=== PATIENT | female | born 1950 | race Caucasian/White ===

== ENCOUNTER 2023-06-02 13:41 | Outpatient (CLI) | payer MEDICARE, SELFPAY ==
--- NOTE | ~2023-06-02 | DEXA_ITS ---
Bone Density Report Name: FREDY MOTA Age: 72 Sex: Female Ethnicity: White Date of : 1950 Indication: postmenopausal; screening for osteoporosis; hysterectomy; Referring Provider: ELLE*MELODIE Jones Study: Bone densitometry was performed. Exam Date: June 02, 2023 Accession number: [id number] Bone Density: Region BMD T-score Z-score Classification AP Spine(L1-L4) 0.719 -3.0 -0.6 Osteoporosis Femoral Neck (Left) 0.674 -1.6 0.5 Osteopenia Total Hip (Left) 0.764 -1.5 0.3 Osteopenia Femoral Neck (Right) 0.673 -1.6 0.5 Osteopenia Total Hip (Right) 0.761 -1.5 0.3 Osteopenia Total Hip Mean 0.763 -1.5 0.3 Osteopenia World Health Organization criteria for BMD impression classify patients as: Normal (T-score at or above -1.0), Osteopenia (T-score between -1.0 and -2.5), or Osteoporosis (T-score at or below -2.5). 10-year Fracture Risk: FRAX not reported because: Some T-score for Spine Total or Hip Total or Femoral Neck at or below -2.5 Treated for osteoporosis Clinical Information Provided by Patient: Is being treated for osteoporosis Has used the following medications: Vitamin D, Calcium Has the following medical conditions: Hysterectomy Patient maximum height was 62 Menopause Age: 28 Does not regularly consume dairy products Onset of menses at age 11 Number of children 1 Impression: The patient has osteoporosis, based on the Total Spine T-score. Discussion: It is important to ask patients whether they are taking their medications and to encourage continued and appropriate compliance with their osteoporosis therapies to reduce fracture risk. It is also important to review their risk factors and encourage appropriate calcium and vitamin D intakes, exercise, fall prevention and other lifestyle measures. Follow-Up: Consider a repeat BMD and Vertebral Fracture Assessment (VFA) exam in 2 years or sooner if medically necessary, to reassess this patient's status. Reported by: ABDULKADIR on 06/02/2023 2:13:00 PM. Reviewed, dictated and finalized at location A. [place]
== END 2023-06-02 13:42 | disposition home or self-care (01) ==
PROVIDERS: PCP Internal Medicine; Visit Provider Internal Medicine
DX: Z78.0 Asymptomatic menopausal state (principal); M81.0 Age-related osteoporosis without current pathological fracture; M85.852 Other specified disorders of bone density and structure, left thigh; M85.851 Other specified disorders of bone density and structure, right thigh
CPT/HCPCS: 77080

== ENCOUNTER 2023-07-31 07:29 | Outpatient (CLI) | payer MEDICARE, SELFPAY ==
--- NOTE | ~2023-07-31 | MM_ITS ---
EXAMINATION: MM screening siria BI w francesca HISTORY: Screening mammogram TECHNIQUE: Craniocaudal and mediolateral oblique 3-D tomosynthesis images were obtained and synthetic 2-D images were generated. CAD analysis was submitted and interpreted. COMPARISON: 06/22/2009 BREAST PARENCHYMAL COMPOSITION: The breasts are heterogeneously dense, which may obscure small masses . FINDINGS: No suspicious mass, calcification, or architectural distortion are identified in either [place] ast to suggest malignancy. There has been no suspicious interval change. IMPRESSION: 1. No mammographic evidence of malignancy. 2. Recommend routine screening mammography in one year. BI-RADS Category 1: Negative Reviewed, dictated and finalized at location A. RY [employer] T[employer]ER
== END 2023-07-31 07:30 | disposition home or self-care (01) ==
PROVIDERS: PCP Internal Medicine; Visit Provider Internal Medicine
DX: Z12.31 Encounter for screening mammogram for malignant neoplasm of breast (principal)
CPT/HCPCS: 77063; 77067

== ENCOUNTER 2024-05-12 10:33 | Outpatient (CLI) | payer MEDICARE, SELFPAY ==
--- NOTE | ~2024-05-12 | MR_ITS ---
MRI of the lumbar spine Clinical History: Back pain Technique: Axial T2-weighted images, and sagittal T1-weighted, T2-weighted, and T2 fat-sat images wer e acquired. Findings: There is no fracture of lumbar spine. Minimal grade 1 anterolisthesis of L3 over L4. No arnold picious bone marrow signal abnormality seen. At L1-L2, there is no disc bulge or herniation. There is mild facet arthropathy. No central canal jamin nosis or neural foraminal narrowing. At L2-L3, there is moderate degenerative distended. There is minimal disc bulge and minimal facet art hropathy. No central canal stenosis. There is mild left neural foraminal narrowing. Right neural fora men preserved. At L3-L4, there is severe degenerative disc narrowing. There is minimal disc bulge and minimal facet arthropathy. No central canal stenosis. There is moderate bilateral neural foraminal narrowing. At L3-4-L5, there is moderate degenerative disc narrowing. There is mild disc bulge with advanced fac et arthropathy. No central canal stenosis. There is moderate bilateral neural foraminal narrowing, ri ght worse than left. At L5-S1, there is minimal disc bulge and moderate to advanced facet arthropathy. No central canal st enosis. There is mild right neural foraminal narrowing. Left neural foramen preserved. Paravertebral soft tissues are unremarkable. Impression: [id number] degenerative spondylosis, as above. Reviewed, dictated and finalized at [facility]. CING SPECIALIST Impression: [id number] degenerative spondylosis, as above.
== END 2024-05-12 10:34 | disposition home or self-care (01) ==
LOC: MICIMG 10:33
PROVIDERS: PCP Internal Medicine; Visit Provider Internal Medicine
DX: M47.896 Other spondylosis, lumbar region (principal)
CPT/HCPCS: 72148

== ENCOUNTER 2024-11-18 07:49 | Outpatient (CLI) | payer MEDICARE, MEDICAID, SELFPAY ==
--- NOTE | ~2024-11-18 | MM_ITS ---
EXAMINATION: MM screening [facility] BI w francesca HISTORY: Screening TECHNIQUE: Craniocaudal and mediolateral oblique 3-D tomosynthesis images were obtained and synthetic 2-D images were generated. CAD analysis was submitted and interpreted. COMPARISON: Comparison to multiple prior studies sequentially, with oldest reviewed study dated 06/05. BREAST PARENCHYMAL COMPOSITION: There are scattered areas of fibroglandular density. FINDINGS: There is no evidence of suspicious mass, calcification, or architectural distortion to sugg est malignancy in either breast. There has been no suspicious interval change. IMPRESSION: 1. No mammographic evidence of malignancy. 2. Recommend routine screening mammography in one year. BI-RADS Category 1: Negative Reviewed, dictated and finalized at location A.
--- OUTSIDE RECORDS SUMMARY | 2024-11-18 07:53 | XMS_ITS | CONTINUITY OF CARE DOCUMENT ---
Author Name marzena, marzena Address Unknown Organization [facility] Address [address] [place] [address] Phone [phone] Care Team Providers Care Merchandiser Name Role Phone Dwain CRUZ, Mónica Unavailable [phone] ELLE CRUZ, MELODIE Ferrer Unavailable [phone] MELODIE ALMEIDA MD Unavailable [phone] PROBLEMS Condition Status Date Provider Notes Abnormal electrocardiogram completed 07/29 - Mónica Prakash MD Tobacco use, quit active Mónica Prakash MD Fatigue completed - Mónica Prakash MD DYSLIPIDEMIA active Mónica Prakash MD Mitral regurgitation, mild active Santiago inman FAMILY HISTORY OF HEART DISEASE active Miguel Prakash MD Aortic regurgitation, mild active Mónica Prakash MD Carotid artery stenosis, <50 % ICA b/l active Mónica Prakash MD Elevated blood pressure active Santiago Tran Macular degeneration, right eye active Olga Manzano Osteoporosis active Fariha Manzano Swelling of bilateral legs active Fariha Manzano Cardiology examination active Mónica iyer MD ENCOUNTERS Date Type Provider Location Encounter Diag nosis - In-person encounter Office Visit Mónica Prakash MD [facility] Cardiology examination - In-person encounter Office Visit Mónica Prakash MD [facility] Fatigue - In-person encounter Office Visit Mónica Prakash MD [facility] Macular degeneration, right eyeOsteoporosisSwelling of bilateral legs - In-person encounter Office Visit Mónica Prakash MD [facility] - In-person encounter Office Visit Mónica Prakash MD [facility] Mitral regurgitation, mildElevated blood pressure - In-person encounter Office Visit Mónica Prakash MD [facility] Abnormal electrocardiogram - In-person encounter Office Visit Mónica Prakash MD [facility] - In-person encounter Office Visit Mónica Prakash MD [facility] Tobacco use, quitDYSLIPIDEMIAMitral regurgitation, mildFAMILY HISTORY OF HEART DISEASEAortic regurgitation, mildCarotid artery stenosis, <50% ICA b/l VITAL SIGNS Date Observation Value Provider Body Mass Index (Ratio) 31.00 kg/m2 Miguel Prakash MD blood pressure, diastolic 95 mm[Hg] Lisa Sepulveda blood pressure, systolic 161 mm[Hg] Laurie georgemago Sepulveda oxygen saturation, oximetry 93 % Griselda Sepulveda pulse rate 71 /min Griselda Sepulveda respiratory rate E&M 12 /min Griselda Sepulveda weight E&M 175 [lb_av] Griselda Sepulveda height E&M 63 [in_i] Griselda Sepulveda blood pressure, cuff size regular Lisa choudharygeorgemago Sepulveda Body Mass Index (Ratio) 30.82 kg/m2 Miguel Prakash MD blood pressure, diastolic 88 mm[Hg] Brittney nkLogic blood pressure, systolic 147 mm[Hg] Anjali blood pressure, cuff size regular Ja rret blood pressure, diastolic 88 mm[Hg] Ja rret blood pressure, systolic 147 mm[Hg] Vinayak ret pulse rate 71 /min Alex y respiratory rate E&M 12 /min Alex oxygen saturation, oximetry 96 % weight E&M 174 [lb_av] Alex y height E&M 63 [in_i] Alex y Body Mass Index (Ratio) 31.00 kg/m2 Olga Manzano blood pressure, cuff size regular Ke rri Gruenenfelder blood pressure, diastolic 80 mm[Hg] Ke rri Gruenenfelder blood pressure, systolic 160 mm[Hg] Jeff ri Humanfelder oxygen saturation, oximetry 97 % Nathalie Chader respiratory rate E&M 12 /min Nathalie fieldselder pulse rate 74 /min Nathalie Devynnenfe lder weight E&M 175 [lb_av] Nathalie Gryaranenfe lder height E&M 63 [in_i] Nathalie Gruenenfe lder Body Mass Index (Ratio) 29.58 kg/m2 Miguel Prakash MD blood pressure, diastolic 83 mm[Hg] Brittney nkLogic blood pressure, systolic 130 mm[Hg] Anjali kLogic blood pressure, cuff size regular Ca therine Dayton blood pressure, diastolic 83 mm[Hg] Ca therine Juan blood pressure, systolic 130 mm[Hg] Cat herine Juan oxygen saturation, oximetry 95 % Cherrie Dayton respiratory rate E&M 18 /min Catheri ne [place] pulse rate 67 /min Cherrie [place] weight E&M 167 [lb_av] Cherrie Juan height E&M 63 [in_i] Cherrie Dayton Body Mass Index (Ratio) 28.87 kg/m2 Tony n Kyte weight E&M 163 [lb_av] Mónica Prakash MD blood pressure, cuff size large Ke rri Gruenenfelder blood pressure, diastolic 88 mm[Hg] Ke rri Gruenenfelder blood pressure, systolic 152 mm[Hg] Jeff ri Humanfelder oxygen saturation, oximetry 98 % Nathalie Chader respiratory rate E&M 16 /min Nathalie fieldselder pulse rate 71 /min Nathalie Benjamin lder height E&M 63 [in_i] Nathalie Gruenenfe lder Body Mass Index (Ratio) 27.81 kg/m2 Tony n Kyte pulse rate 70 /min Fariha Block blood pressure, diastolic 70 mm[Hg] [facility] blood pressure, systolic 130 mm[Hg] Nay tubbs Block oxygen saturation, oximetry 97 % Fariha Block weight E&M 157 [lb_av] Fariha Block respiratory rate E&M 16 /min Brittan y Block height E&M 63 [in_i] Fariha Block Body Mass Index (Ratio) 28.06 kg/m2 Frank dos santosnora Eugenie blood pressure, diastolic 74 mm[Hg] David Prakash MD blood pressure, systolic 124 mm[Hg] Lisseth Prakash MD oxygen saturation, oximetry 96 % Hong Lemus respiratory rate E&M 18 /min Christelle Lemus pulse rate 78 /min Hong arndt weight E&M 158.4 [lb_av] Hong garcia height E&M 63 [in_i] Hong arndt Body Mass Index (Ratio) 26.92 kg/m2 Curtis Arteaga blood pressure, resting No Miguel Prakash MD blood pressure, cuff size regular Ke rri Zita blood pressure, diastolic 76 mm[Hg] Maldonado Ahumada blood pressure, systolic 138 mm[Hg] Jeff Ahumada oxygen saturation, oximetry 94 % Russell Arteaga respiratory rate E&M 16 /min Nathalie tan pulse rate 67 /min Nathalie kinneyer weight E&M 152 [lb_av] Nathalie kinneyer height E&M 63 [in_i] Nathalie kinneyer ALLERGIES Allergy Name Onset Date Reaction Criticality Status CODEINE Low Criticality active RESULTS Date Observation Value Provider Reference Range Interpretation Location 0 lipoprotein, beta, serum, point, quantitative, calculated 110 mg/dL [facility] 0-99 High 0 very low density lipoproteins 18 mg/dL [facility] 5-40 0 HDL cholesterol, serum 85 mg/dL [facility] >39 0 triglyceride, serum, random 88 mg/dL [facility] 0-149 0 cholesterol, serum 213 mg/dL [facility] 100-199 High 0 alanine aminotransferase (SGPT), serum 27 1/L [facility] 0-32 0 aspartate aminotransferase (SGOT), serum 36 1/L [facility] 0-40 0 alkaline phosphatase, serum 67 1/L [facility] 39-117 0 bilirubin, serum, total 0.7 mg/dL [facility] 0.0-1.2 0 albumin/globulin ratio, serum 1.8 [facility] 1.2-2.2 0 globulin, serum 2.6 [facility] 1.5-4.5 0 albumin, serum 4.6 g/dL [facility] 3.6-4.8 0 protein, total, serum 7.2 g/dL [facility] 6.0-8.5 0 calcium, serum 9.8 mg/dL [facility] 8.7-10.3 0 carbon dioxide, venous blood 23 mmol/L [facility] 20-29 0 chloride, serum 100 mmol/L [facility] 96-106 0 potassium, serum 4.7 mmol/L [facility] 3.5-5.2 0 sodium, serum 140 mmol/L [facility] 742-819 6587/06/3 0 urea nitrogen/creatinine ratio, serum 20 [facility] 12-28 0 eGFR if 102 mL/min/{1 .73_m2} [facility] >59 0 eGFR if not 89 mL/min/{1 .73_m2} [facility] >59 0 creatinine, serum 0.70 mg/dL [facility] 0.57-1.00 0 urea nitrogen, blood 14 mg/dL [facility] 8-27 0 blood glucose, random 90 mg/dL [facility] 65-99 HISTORY OF MEDICATION USE Medication Status Instructions Dates Provider Indications Com ments amlodipine 2.5 mg tablet active Take 1 tablet by mouth once a day MULTIVITAMINS CAPS active 1 tablet once a day Nathalie Ahumada Vitamin B-6 100 mg tablet active once a day Nathalie Ahumada Lipitor 20 mg tablet active 1 tablet once a day Nina Hopkins NP CALCIUM-VITAMIN D3 TABLET completed Twice daily - Nathalie Ahumada ASPIRIN LOW DOSE 81 MG ORAL TABLET DELAYED RELEASE completed once a day - Nathalie Ahumada magnesium oxide 250 mg magnesium tablet completed 1 tablet once a day - Alex Ajday B-12 CAPSULE completed once a day - Nathalie Ahumada CALCIUM CITRATE + D3 TABLET completed once a day - Russell Arteaga ergocalciferol (vitamin D2) 1,250 mcg (50,000 unit) capsule active once a week Nathalie Ahumada LIPITOR 20 MG ORAL TABLET completed once a day - Mónica Prakash MD SOCIAL HISTORY Date Observation Value Provider alcohol use, average drinks per day social Mónica Prakash MD alcohol use yes Mónica Prakash MD smoking, year quit 2002 Mónica Prakash MD number of years as a smoker 35 a Mónica Prakash MD smoking history, tot al pack/day 1 Mónica Prakash MD cigarette use yes Mónica Prakash MD smoking status Former smoker Mónica elliott MD alcohol use, average drinks per day social Mónica Prakash MD alcohol use yes Mónica Prakash MD smoking, year quit 2002 Mónica Prakash MD number of years as a smoker 35 a Mónica Prakash MD smoking history, tot al pack/day 1 Mónica Prakash MD cigarette use yes Móinca Prakash MD smoking status Former smoker Mónica elliott MD social history E&M S moking History: Naty kelly is a former smoker. Fariha Manzano social history reviewed E&M revi ewed - no changes required Fariha Jacobsmeyer exercise type classes Nathalie Freeman elder physical exercise, f requency, days per week 4 /wk Nathalie Ahumada caffeine use, averag e drinks per day 2-3 Nathalie Ahumada smoking, year quit 2002 Nathalie garcíadolly number of years as a smoker 35 a Nathalie Ahumada smoking history, tot al pack/day 1 Nathalie Ahumada cigarette use yes Nathalie Freeman elder smoking status Former smoker Nathalie haines social history E&M S moking History: P atient is a former smoker. Mónica Prakash MD social history reviewed E&M revi ewed - no changes required Mónica Prakash MD exercise type classes Cherrie Juan physical exercise, f requency, days per week 4 /wk Cherrie Juan caffeine use, averag e drinks per day 2-3 Cherrie Juan smoking, year quit 2002 Cherrie Dayton number of years as a smoker 35 a Cherrie Dayton smoking history, tot al pack/day 1 Cherrie Juan cigarette use yes Cherrie Dayton smoking status Former smoker Cherrie Ot is social history E&M S moking History: P atient is a former smoker. Mónica Prakash MD social history reviewed E&M revi ewed - no changes required Mónica Prakash MD exercise type classes Nathaliecirilo Shepardnavakelvin devin physical exercise, f requency, days per week 4 /wk Nathalie Freemandevin caffeine use, averag e drinks per day 2-3 Nathalie Bonillaanton smoking, year quit 2002 Nathalie cruzer number of years as a smoker 35 a Nathalie Bonillaer smoking history, tot al pack/day 1 Nathalie Freemanelder cigarette use yes Nathalie Freeman elder smoking status Former smoker Nathalie warrenelder social history E&M S moking History: Naty kelly is a former smoker. Mónica Prakash MD social history reviewed E&M revi ewed - no changes required Mónica Prakash MD exercise type classes Fariha Mccracken physical exercise, f requency, days per week 4 /wk Fariha Block caffeine use, averag e drinks per day 2-3 Fariha Block smoking, year quit 2002 Fariha Mccracken number of years as a smoker 35 a Fariha Block smoking history, tot al pack/day 1 Fariha Block cigarette use yes Fariha Block smoking status Former smoker Fariha Proctor caffeine use, averag e drinks per day 2-3 Sarah Culclager physical exercise, f requency, days per week 4 /wk Sarah Culclager exercise type classes Sarah Culclager smoking, year quit 2002 Sarah Culc lager cigarette use yes Sarah Culclager smoking status Former smoker Sarah Culclag er number of grandchildren Mónica Prakash MD social history reviewed E&M revi ewed - no changes required Mónica Prakash MD exercise type strength trainin g and cardio Hong Lemus physical exercise, f requency, days per week 4 /wk Hong Lemus alcohol use, average drinks per day social Hong Lemus alcohol use yes Hong arndt smoking, year quit 2002 Hong Lemsu number of years as a smoker 35 a Hong Lemus smoking history, tot al pack/day 1 Hong Lemus cigarette use yes Hong garcia smoking status Former smoker Hong Sosa exercise type strength trainin g and cardio Mónica Prakash MD physical exercise, f requency, days per week 4 /wk Mónica Prakash MD social history reviewed E&M revi ewed - no changes required Mónica Prakash MD social history E&M Smoking Histo ry: Naty kelly is a former smoker. Mónica Prakash MD alcohol use, average drinks per day social Nathalie Ahumada alcohol use yes Nathalie chaidez number of years as a smoker 35 a Nathalie Ahumada smoking history, tot al pack/day 1 Mónica Prakash MD smoking, year quit 2002 Nathalie alberto cigarette use yes Nathalie beltran smoking status Former smoker Nathalie Huma haines FAMILY HISTORY Family Member Condition Father Family History of Co ronary Artery Disease: Mother Family History Unkno wn Father Family History of CV A or Stroke: INSURANCE PROVIDERS Payer name Policy type / Coverage type [place] red libertarian ID AARP MEDICARE ADVANTAGE HMO-POS HMO [id number] [facility] Medicaid 2 [id number] ADVANCE DIRECTIVES Name Date DISCUSSED - NO DECISION MADE TREATMENT PLAN Date Name Performer [id number],C,1 07/2020 1 . Mild plaque with less than 50% stenosis of the internal carotid arteries bilaterally. 2 . High grade stenosis of the right ECA, PSV= 3.97m/s. 3 . Vertebral flow is antegrade bilaterally. will recheck carotid duplex Nina Hopkins NP [id number],C,L > R. will check venous doppler with reflux Nina Hopkins LOG POND WORKER [id number],C, R esolved. negative stress test 02/2022 Nina Hopkins LOG POND WORKER [id number],C,C HOL: 213 (01/02/2018) HDL: 85 (01/02/2018) Her updated medication list for this problem includes: Lipitor 20 Mg Tablet (Atorvastatin) ..... 1 tablet once a day recent labs at PCP. will request results Nina Mondragonshireen LOG POND WORKER [id number],C,ECHO 02/2022 m oderate MR Nina Hopkins LOG POND WORKER [id number],C, T race on echo 02/2022 . Nina Mondragonshireen WONG [id number],C,B P today 160/80. pt states that at PCP office on thursday it was 120/80 and whenever she checks her BP at the store it is always around the 120/80 range Nina Hopkins LOG POND WORKER [id number],C, Nina ashley LOG POND WORKER [id number],C, Nina ashley LOG POND WORKER [id number],S, B P today is satisfactory. Mónica Prakash MD [id number],S, T race on recent echo. Mónica Prakash MD [id number],S, T race on recent echo. Mónica Prakash MD [id number],S, R esolved. Mónica Prakash MD [id number],S, C ontinues on Lipitor 40mg daily. Mónica Prakash MD [id number],S, < 50% stenosis bilaterally with high grade stenosis of left ECA on recent scan. No dizziness, lightheadedness, syncope. Mónica Prakash MD Cardiology Mónica Steinberg Cardiology:notes sig nificant improvement of sx with support stockings; continue use Mónica Prakash MD Cardiology:161/95 p t states is well controlled at home a dvised to continue monitoring Mónica Prakash MD Cardiology: H er updated medication list for this problem includes: Lipitor 20 Mg Tablet (Atorvastatin) ..... 1 tablet once a day Mónica Prakash MD Cardiology: 0 12/2022 US showed 1 . Mild plaque with less than 50% stenosis of the internal carotid arteries bilaterally. 2 . Vertebral flow is antegrade bilaterally Mónica Prakash MD Cardiology:She wears compression stockings every day and leg swelling and pain has improved Mónica Prakash MD Cardiology:BP 147/88 today W ell controlled at home C ontinue to monitor Mónica Prakash MD Cardiology:12/2022 U S showed 1 . Mild plaque with less than 50% stenosis of the internal carotid arteries bilaterally. 2 . Vertebral flow is antegrade bilaterally Mónica Prakash MD Cardiology:Continue on statin, aim for LDL less than 70 Her updated medication list for this problem includes: Lipitor 20 Mg Tablet (Atorvastatin) ..... 1 tablet once a day Mónica Prakash MD Cardiology:05/2021 1 . Mild plaque with less than 50% stenosis of the internal carotid arteries bilaterally. 2 . High grade stenosis of the right ECA, PSV= 3.97m/s. 3 . Vertebral flow is antegrade bilaterally. will recheck carotid duplex Nina Hopkins NP Cardiology:L > R. wi ll check venous doppler with reflux Nina Hopkins NP Cardiology: R esolved. negative stress test 02/2022 Nina Hopkins NP Cardiology:CHOL: 213 (01/02/2018) HDL: 85 (01/02/2018) Her updated medication list for this problem includes: Lipitor 20 Mg Tablet (Atorvastatin) ..... 1 tablet once a day recent labs at PCP. will request results Nina Hopkins LOG POND WORKER Cardiology:ECHO 02/2022 moderate MR Nina Hopkins LOG POND WORKER Cardiology: T race on echo 02/2022 . Nina Hopkins LOG POND WORKER Cardiology:BP today 160/80. pt states that at PCP office on thursday it was 120/80 and whenever she checks her BP at the store it is always around the 120/80 range Nina Hopkins LOG POND WORKER Cardiology Nina Hopkins LOG POND WORKER Cardiology Nina Mondragonshireen LOG POND WORKER Cardiology: B P today is satisfactory. Mónica Prakash MD Cardiology: T race on recent echo. Mónica Prakash MD Cardiology: T race on recent echo. Mónica Prakash MD Cardiology: R esolved. Mónica Prakash MD Cardiology: C ontinues on Lipitor 40mg daily. Mónica Prakash MD Cardiology: < 50% stenosis bilaterally with high grade stenosis of left ECA on recent scan. No dizziness, lightheadedness, syncope. Mónica Prakash MD Cardiology Follow up :Resolved. Santiago Tran Cardiology Follow up :Mild on echo today. Will repeat echo in 1 year. Santiago Tran Cardiology Follow up :Continues on Lipitor 40mg daily. Planned for labs with you in July. She would benefit from a lipid pnael. Santiago Tran Cardiology Follow up :< 50% stenosis bilaterally in 2017. Will repeat doppler in 1 year. Santiago Tran Cardiology Follow up :Mild AR on echo today. Will repeat echo in 1 year. Mónica Prakash MD Cardiology Follow up :Likely due to stress. Advised reduced sodium intake and routine monitoring of the blood pressure. We aim for less than 130/80. Mónica Prakash MD Cardiology :Will repeat echo. David Prakash MD Cardiology :Denies o f any dizziness or unsteadiness. will continue to monitor. Mónica Prakash MD Cardiology :Continue s on Lipitor 40mg daily. We will request labs from your office. Mónica Prakash MD Cardiology :Murmur u nchanges. Will repeat echo at next appointment. Mónica Prakash MD Cardiology Mónica Steinberg Cardiology:Will chec k lipid panel in three months. The patient is currently following a ketogenic diet, which means that the amount of fat she eats is likely higher than previously. She continues Lipitor 20mg once daily Mónica Prakash MD Cardiology Mónica Steinberg Cardiology Mónica Steinberg Cardiology New Patient:On Atorva statin 20mg daily. Russell Chandler Cardiology New Patie nt:The echo shows mild aortic regurgitation. Russell Chandler Cardiology New Patie nt:Clinically no murmur was appreciated on auscultation. The echo does show moderate MR, but LV size and systolic function are normal, and the left atrium is not enlarged. No further intervention is indicated. I have reassured the patient that we will repeat the echocardiogram in a few years or earlier if she becomes symptomatic. Russell Arteaga Cardiology New Patie nt:The etiology of her increased tiredness and easy fatigability is unclear. She tells me that she had all her bloodwork done, which were normal. This means that the TSH was normal. Russell Arteaga Date Name Carotid Duplex Bilat eral Venous Doppler Bilat eral LE - Reflux Carotid Duplex Bilat eral Complete Echo Complete Echo TSH, 3RD GENERATION W/REFLEX TO FT4 LIPID PANEL COMPREHENSIVE METABO LIC PANEL, W/EGFR HISTORY OF PROCEDURES Procedure Date Procedure Name Provider Procedure Notes S tatus Complex e/m visit add on Mónica Prakash MD completed EKG Mónica Prakash MD complet ed EKG Mónica Prakash MD complet ed EKG Mónica Prakash MD complet ed EKG Mónica Prakash MD complet ed EKG Mónica Prakash MD complet ed EKG Mónica Prakash MD complet ed EKG Mónica Prakash MD complet ed EKG Mónica Prakash MD complet ed SNOMED-CT: [id number] Current Medications Documented Mónica Prakash MD completed Stress EKG Josiah Dupree MD complete d Cardiolite, 2 units Josiah Dupree MD completed SPECT Images Jesus Kuhn MD complet ed
--- OUTSIDE RECORDS SUMMARY | 2024-11-18 07:54 | XMS_ITS | Data Portability ---
Author Organization [place] [employer], Main Office Address [address] [place] [id number] Care Team Providers Care Chief Load Dispatcher Name Role Phone MELODIE ALMEIDA Primary Care Provider MELODIE ALMEIDA Referring Provider [phone] Assessment Encounter Date Assessment Date Assessment LastModified by Organization Details LastModified Time 12/17/2022 12/17/2022 Continue current therapy rtc 4 months [email or web address] Not available 01/25/2023 18:35:56 04/15/2023 04/15/2023 Blood work low fat diet regular exercise no detectable PCR hep C nucleic acid see me in 6 months [email or web address] Not available 04/18/2023 14:07:39 06/10/2023 06/10/2023 Bone density discussed in detail she wants to hold off on any agents at this time she does have some concerns those were discussed she will think about it will continue current therapy follow-up in 4-6 months [email or web address] Not available 06/12/2023 19:41:43 09/01/2023 09/01/2023 73 yo patient presents today for right knee pain that has been going on for about 3 weeks. She denies any injury or issues with the knee in the past. She states she woke up in the middle of the night and when she went to straighten the knee it felt stiff and heavy. It was painful to straighten. Since then she has felt the knee as been tender and slightly stiff. She has tried ibuprofen, exercise, and an essential oil balm, which has helped. Review of systems per patient questionnaire. Imaging: Xrays reviewed of the right knee show no acute bony abnormality or fracture. Preserved joint spaced throughout. Physical exam: No bruising or edema. Tenderness with palpitation to the lateral side. Discomfort with deep flexion. ROM 0-150. Positve McMurrays. Stable Lachmanns, varus/valgus stress. Sensation intact. We will start with a course of PT exercises to help stretch and strengthen the knee. She would like to do the exercises at home on her own so we will give her a handout. We recommend she take ibuprofen regularly for the next week or so. We will see her back in 4-6 weeks to check her progress. She is in agreement with this plan. [email or web address] Not available 09/01/2023 11:26:20 Plan of Treatment Reminders Order Date Submit Date Provider Last Modified By Organization Details Last Modified Time Details Appointments None recorded. Lab CBC w/ auto diff 023 [facility] (Lab), [address] [place], [address], 3 11:02:21 lipid panel, serum [facility] (Lab), [address] [place], [address], 3 13:19:22 CMP, serum or plasma [facility] (Lab), [address] [place], [address], 3 13:19:24 Referral None recorded. Procedures None recorded. Surgeries None recorded. Imaging XR, knee, 3 view 024 [email or web address], [address], [place], [address], 4 23:26:19 bone density [facility] (Imaging), [address], [place], [address], 3 10:21:55 Medication Orders None recorded. Patient TargetsNo targets recorded. Patient Instructions Encounter Date Encounter Id Patient Instructions Last Modified By Organization Details Last Modified Time 10/13/2023 [id number] acute low back pain: exercises Not available 04/06/2024 09:51:27 acute high blood pressure: care instructions Not available 04/06/2024 09:51:27 Reason for Referral None Reported. Results Created Date Observation Date Name Description Value Unit Range Abnormal Flag Note LastModifiedBy Organization Detail LastModifiedTime 04/17/2004/17/2023 CBC/C OMPLE TE BLD COUNT W/DIF F white blood cells 5.8 x10'3 /uL 4.2-10 .8 Not Available [facility] (Lab) [address] [place], [address], 04/17/2023 11:02:21 04/17/2004/17/2023 CBC/C OMPLE TE BLD COUNT W/DIF F red blood cells 4.79 x10'6 /uL 3.80-5 .20 Not Available [facility] (Lab) [address] [place], [address], 04/17/2023 11:02:21 04/17/2004/17/2023 CBC/C OMPLE TE BLD COUNT W/DIF F hemoglobin 15.0 g/dL 12.0-1 5.6 Not Available [facility] (Lab) [address] [place], [address], 04/17/2023 11:02:21 04/17/2004/17/2023 CBC/C OMPLE TE BLD COUNT W/DIF F hematocrit 44.8 % 35.7-4 5.7 Not Available [facility] (Lab) [address] [place], [address], 04/17/2023 11:02:21 04/17/2004/17/2023 CBC/C OMPLE TE BLD COUNT W/DIF F mean red cell volume 93.5 fL 82.0-9 9.0 Not Available [facility] (Lab) [address] [place], [address], 04/17/2023 11:02:21 04/17/2004/17/2023 CBC/C OMPLE TE BLD COUNT W/DIF F mean red cell hemoglobin 31.3 pg 27.0-3 3.0 Not Available [facility] (Lab) [address] [place], [address], 04/17/2023 11:02:21 04/17/2004/17/2023 CBC/C OMPLE TE BLD COUNT W/DIF F mean RBC HGB concentratio n 33.5 g/dL 31.0-3 6.0 Not Available [facility] (Lab) [address] [place], [address], 04/17/2023 11:02:21 04/17/2004/17/2023 CBC/C OMPLE TE BLD COUNT W/DIF F red cell distribution width 13.6 % 11.8-1 5.5 Not Available [facility] (Lab) [address] [place], [address], 04/17/2023 11:02:21 04/17/2004/17/2023 CBC/C OMPLE TE BLD COUNT W/DIF F platelets 178 x10'3 /uL 150-40 0 Not Available [facility] (Lab) [address] [place], [address], 04/17/2023 11:02:21 04/17/2004/17/2023 CBC/C OMPLE TE BLD COUNT W/DIF F mean platelet volume 10.6 fL 9.0-12 .4 Not Available [facility] (Lab) [address] [place], [address], 04/17/2023 11:02:21 04/17/2004/17/2023 CBC/C OMPLE TE BLD COUNT W/DIF F neutrophils 60.1 % 39.0-7 2.0 Not Available [facility] (Lab) [address] [place], [address], 04/17/2023 11:02:21 04/17/2004/17/2023 CBC/C OMPLE TE BLD COUNT W/DIF F lymphocytes 26.5 % 16.0-4 7.0 Not Available [facility] (Lab) [address] [place], [address], 04/17/2023 11:02:21 04/17/2004/17/2023 CBC/C OMPLE TE BLD COUNT W/DIF F monocytes 10.0 % 5.0-12 .0 Not Available [facility] (Lab) [address] [place], [address], 04/17/2023 11:02:21 04/17/2004/17/2023 CBC/C OMPLE TE BLD COUNT W/DIF F eosinophils 2.2 % 1.0-7. 0 Not Available [facility] (Lab) [address] [place], [address], 04/17/2023 11:02:21 04/17/2004/17/2023 CBC/C OMPLE TE BLD COUNT W/DIF F basophils 0.9 % 0.0-2. 0 Not Available [facility] (Lab) [address] [place], [address], 04/17/2023 11:02:21 04/17/2004/17/2023 CBC/C OMPLE TE BLD COUNT W/DIF F immature granulocytes 0.3 % 0.00-0 .50 Not Available [facility] (Lab) [address] [place], [address], 04/17/2023 11:02:21 04/17/2004/17/2023 CBC/C OMPLE TE BLD COUNT W/DIF F neutrophils, absolute count 3.50 x10'3 /uL 1.5-8. 0 Not Available [facility] (Lab) [address] [place], [address], 04/17/2023 11:02:21 04/17/2004/17/2023 CBC/C OMPLE TE BLD COUNT W/DIF F lymphocytes, absolute count 1.54 x10'3 /uL 1.07-3 .43 Not Available [facility] (Lab) [address] [place], [address], 04/17/2023 11:02:21 04/17/2004/17/2023 CBC/C OMPLE TE BLD COUNT W/DIF F monocytes, absolute count 0.58 x10'3 /uL 0.29-0 .99 Not Available [facility] (Lab) [address] [place], [address], 04/17/2023 11:02:21 04/17/2004/17/2023 CBC/C OMPLE TE BLD COUNT W/DIF F eosinophils, absolute count 0.13 x10'3 /uL 0.02-0 .53 Not Available [facility] (Lab) [address] [place], [address], 04/17/2023 11:02:21 04/17/2004/17/2023 CBC/C OMPLE TE BLD COUNT W/DIF F basophils, absolute count 0.05 x10'3 /uL 0.01-0 .08 Not Available [facility] (Lab) [address] [place], [address], 04/17/2023 11:02:21 04/17/2004/17/2023 CBC/C OMPLE TE BLD COUNT W/DIF F immature granulocytes ,absolute 0.02 x10'3 /uL 0.00-0 .05 Not Available [facility] (Lab) [address] [place], [address], 04/17/2023 11:02:21 04/17/2004/17/2023 CBC/C OMPLE TE BLD COUNT W/DIF F nucleated red blood cells 0.0 % -0 Not Available [facility] (Lab) [address] [place] [address], [address], 04/17/2023 11:02:21 04/17/20 23 04/17/2023 CBC/C OMPLE TE BLD COUNT W/DIF F NRBC# 0.00 x10'3 /uL Not Available [facility] (Lab) [address] [place] [address], [address], 04/17/2023 11:02:21 04/17/2004/17/2023 LIPID PANEL cholesterol 231 mg/dL 140-19 9 high NIH MONICA NSUS RECOM MENDA TION FOR STERLING STERO L: ADULT CHILD LOW RISK: <200 <170 BORDE RLINE : <200- 239 ----- HIGH RISK: >240 >200 Not Available [facility] (Lab) [address] [place], [address], 04/17/2023 13:19:22 04/17/2004/17/2023 LIPID PANEL triglyceride s 110 mg/dL 0-150 NIH MONICA NSUS REPOR T RECOM MENDA TION FOR TRIGL YCERI ROSSY: ADULT CHILD LOW RISK: <150 ----- BODER LINE: 150-1 99 ----- HIGH RISK: >200 ----- Not Available [facility] (Lab) [address] [place], [address], 04/17/2023 13:19:22 04/17/2004/17/2023 LIPID PANEL HDL cholesterol 74 mg/dL 40- Not Available [facility] (Lab) [address] [place] [address], [address], 04/17/2023 13:19:22 04/17/20 23 04/17/2023 LIPID PANEL LDL cholesterol, calculated 135 mg/dL 0-130 high NIH MONICA NSUS REPOR T RECOM MENDA TIONS FOR LDL: ADULT CHILD LOW RISK <130 <110 (OPTI MAL LDL) <100 ----- BORDE RLINE : 130-1 59 ----- HIGH RISK: >160 >130 A TRIGL YCERI DE RESUL T >400 INVAL IDATE S THE CALCU LATIO N FOR LDL FRACT IONAT ION - THE LDL RESUL T WILL NOT BE REPOR BELKYS. Not Available [facility] (Lab) [address] [place], [address], 04/17/2023 13:19:22 04/17/2004/17/2023 COMPR EHENS IVANIA METAB OLIC PANEL sodium 139 mmol/ L 137-14 5 Not Available [facility] (Lab) [address] [place], [address], 04/17/2023 13:19:24 04/17/2004/17/2023 COMPR EHENS IVANIA METAB OLIC PANEL potassium 4.3 mmol/ L 3.5-5. 1 Not Available [facility] (Lab) [address] [place], [address], 04/17/2023 13:19:24 04/17/2004/17/2023 COMPR EHENS IVANIA METAB OLIC PANEL chloride 103 mmol/ L 98-107 Not Available [facility] (Lab) [address] [place], [address], 04/17/2023 13:19:24 04/17/2004/17/2023 COMPR EHENS IVANIA METAB OLIC PANEL carbon dioxide 30 mmol/ L 22-30 Not Available [facility] (Lab) [address] [place], [address], 04/17/2023 13:19:24 04/17/2004/17/2023 COMPR EHENS IVANIA METAB OLIC PANEL anion gap 10.3 mmol/ L 14-22 low Not Available [facility] (Lab) [address] [place], [address], 04/17/2023 13:19:24 04/17/2004/17/2023 COMPR EHENS IVANIA METAB OLIC PANEL glucose 93 mg/dL 70-99 Not Available [facility] (Lab) [address] [place], [address], 04/17/2023 13:19:24 04/17/2004/17/2023 COMPR EHENS IVANIA METAB OLIC PANEL BUN 19 mg/dL 8-19 Not Available [facility] (Lab) [address] [place], [address], 04/17/2023 13:19:24 04/17/2004/17/2023 COMPR EHENS IVANIA METAB OLIC PANEL creatinine 0.66 mg/dL 0.66-1 .25 Not Available [facility] (Lab) [address] [place], [address], 04/17/2023 13:19:24 04/17/2004/17/2023 COMPR EHENS IVANIA METAB OLIC PANEL GFR >60 Refer ence Range : [place] ge GFR Healt hy Adult : >60 mL/mi n/1.7 3 m2 Chron ic Kidne y Disea se: 15-60 mL/mi n/1.7 3 m2 Kidne y Failu re: <15/m L/min /1.73 m2 www.n iddk. nih.g ov The MDRD study equat ion has not been valid ated in child zac <18 years of age; pregn ant women ; the elder ly >85 years of age; or in some racia l or ethni c subgr oups, such as Hisga nics. Outsi de the valid ated chadwick eters , estim ated GFR is less accur ate, requi ring clini juancarlos judgm ent on a case- by-ca se basis . Clini juancarlos inter preta tion for other races and ages must be made by the clini janay. The MDRD study equat ion has not been valid ated for the evalu ation of serum creat inine relat ed to nutri danelle l statu s or medic ation usage . For perso ns <18 years of age, a pedia tric GFR calcu lator is avail able on the [facility] websi te: https ://abelardo hanley.jairo branch.o rudy/pr ofess ional s/kdo qi/gf r_cal culat or Not Available [facility] (Lab) [address] [place], [address], 04/17/2023 13:19:24 04/17/2004/17/2023 COMPR EHENS IVANIA METAB OLIC PANEL alkaline phosphatase 113 U/L 38-126 Not Available [facility] (Lab) [address] [place], [address], 04/17/2023 13:19:24 04/17/2004/17/2023 COMPR EHENS IVANIA METAB OLIC PANEL alanine aminotransfe rase 37 U/L 0-35 high Not Available [facility] (Lab) [address] [place], [address], 04/17/2023 13:19:24 04/17/2004/17/2023 COMPR EHENS IVANIA METAB OLIC PANEL aspartate aminotransfe rase 39 U/L 15-37 high Not Available [facility] (Lab) [address] [place], [address], 04/17/2023 13:19:24 04/17/2004/17/2023 COMPR EHENS IVANIA METAB OLIC PANEL bilirubin, total 1.00 mg/dL 0.20-1 .30 Not Available [facility] (Lab) [address] [place], [address], 04/17/2023 13:19:24 04/17/2004/17/2023 COMPR EHENS IVANIA METAB OLIC PANEL calcium 9.5 mg/dL 8.4-10 .2 Not Available [facility] (Lab) [address] [place], [address], 04/17/2023 13:19:24 04/17/2004/17/2023 COMPR EHENS IVANIA METAB OLIC PANEL total protein 7.4 g/dL 6.3-8. 2 Not Available [facility] (Lab) [address] [place], [address], 04/17/2023 13:19:24 04/17/20 23 04/17/2023 COMPR EHENS IVANIA METAB OLIC PANEL albumin 4.4 g/dL 3.0-4. 4 Not Available [facility] (Lab) [address] [place], [address], 04/17/2023 13:19:24 04/17/2004/17/2023 COMPR EHENS IVANIA METAB OLIC PANEL globulin 3.0 g/dL 2.6-4. 2 Not Available [facility] (Lab) [address] [place], [address], 04/17/2023 13:19:24 04/17/2004/17/2023 COMPR EHENS IVANIA METAB OLIC PANEL A/G ratio 1.5 ratio 1.0-2. 0 Not Available [facility] (Lab) [address] [place], [address], 04/17/2023 13:19:24 12/05/19 23 12/04/2022 US, judd smith id arter y No observ ation record ed. [email or web address] [facility] [address], [place], [address], 04/17/2023 10:02:52 12/06/19 23 12/04/2022 US, zuleika smith s, lower extre mity No observ ation record ed. [email or web address] [facility] [address], [place], [address], 04/17/2023 10:03:13 06/04/20 23 06/02/2023 bone densi ty No observ ation record ed. [address], [place], [address], 06/08/2023 10:32:26 06/05/20 23 06/02/2023 bone densi ty No observ ation record ed. [address], [place], [address], 06/08/2023 10:31:12 07/31/19 24 07/31/2023 MAMMO , scree heber, digit al, bilat eral No observ ation record ed. [address], [place], [address], 08/03/2023 16:11:12 07/31/19 24 07/31/2023 MAMMO , scree heber, digit al, bilat eral No observ ation record ed. [address], [place], [address], 08/03/2023 16:11:19 09/01/19 XR, knee, 3 view No observ ation record ed. [email or web address] [facility] [address], [place], [address], 09/01/2023 11:13:35 Result Notes None recorded. Problems Name Problem SNOMED Code Status Onset Date Resolution Date Notes Provider Name and Address Organization Details Recorded Time Viral hepatitis C 62004547 Active 2022 Not Available [facility] 3 06:48:57 Benign essential hypertens ion 0499250 Active 2022 Not Available [facility] 3 06:48:56 Pain of right knee joint 68104757541 4100 Active 2023 STAN Tapia null, [facility] 4 09:56:36 Essential hypertens ion 77185962 Active 2023 Michaela Chavez CCM null, [facility] 4 09:29:15 Osteoarth ritis 494290068 Active 2023 Michaela Chavez CCM null, [facility] 4 09:29:28 Hypertens ivania heart disease 14793980 Active 2023 Michaela Chavez CCM null, [facility] 4 09:30:06 Renewal of prescript ion Active 2021 Not Available [facility] 3 06:48:56 Hearing loss 74979664 Active Not Available [facility] 3 06:48:56 Body mass index 25-29 - overweigh t 152415181 Completed Not Available [facility] 3 04:39:14 Insomnia 018342494 Active Not Available [facility] 3 06:48:57 Cataract 115634759 Completed Not Available [facility] 3 04:39:14 Sciatica 27807684 Completed Not Available [facility] 3 04:39:14 Malaise and fatigue 399724571 Completed Not Available [facility] 3 04:39:14 Low back pain 433384978 Active Not Available [facility] 3 06:48:57 Trochante monica tendiniti s 30403862 Completed Not Available [facility] 3 04:39:14 Chest pain 57599577 Active 2021 Not Available [facility] 3 06:48:57 Osteopeni a 879125120 Active Not Available [facility] 3 06:48:57 Pain in right foot 86868995987 9107 Active 2021 Not Available [facility] 3 06:48:57 Pain in right knee Completed Not Available [facility] 3 04:39:14 Vitamin D deficienc y 45863150 Active Not Available [facility] 3 06:48:57 Strain of neck muscle 249499551 Completed Not Available [facility] 3 04:39:14 Chronic pain syndrome 142065833 Completed Not Available [facility] 3 04:39:15 Hypertens ivania disorder 78187633 Active Not Available [facility] 3 06:48:57 Tension-t ype headache 824703209 Completed Not Available [facility] 3 04:39:15 Adhesive capsuliti s of shoulder 480886591 Active Not Available [facility] 3 06:48:57 Dizziness 983260960 Completed Not Available [facility] 3 04:39:15 Acute urinary tract infection 641318433 Active 2021 Not Available [facility] 3 06:48:57 Benign adenomato us neoplasm 581873987 Active Not Available [facility] 3 06:48:57 Dysuria 28865266 Completed Not Available [facility] 3 04:39:15 Cough 64137163 Active 2021 Not Available [facility] 3 06:48:57 Upper respirato ry infection 17094382 Active 2021 Not Available [facility] 3 06:48:57 Hyperlipi demia 10198073 Active Not Available [facility] 3 06:48:57 Pain of joint 18363338 Active Not Available [facility] 3 06:48:57 Dyspnea on exertion 45042398 Completed 201608/23/2017 Not Available [facility] 3 04:39:16 COVID-19 329411892 Active 2021 Not Available [facility] 3 06:48:57 Problem Notes None recorded. Procedures Surgical History Date Name Laterality Status Provider Name and Address Organization Details Recorded Time 10/28/19 24 Chronic care management services completed Michaela Chavez CCM [facility] 10/28/2023 09:28:57 11/22/19 21 Most Recent Bone Density completed Not Available [facility] 09/03/2022 04:34:08 10/24/19 15 Date of Last Colonoscopy completed Not Available [facility] 09/03/2022 04:34:08 10/24/19 15 Colonoscopy with biopsy completed Not Available [facility] 09/03/2022 04:34:10 Hysterectomy, Partial completed Not Available [facility] 09/03/2022 04:34:10 Cataract Surgery completed Not Available [facility] 09/03/2022 04:34:10 Neck Surgeries completed Not Available [facility] 09/03/2022 04:34:10 Imaging Results Imaging Date Name Status LastModified by Geraldine cardenas Details LastModified Time 12/04/2022 US, duplex, carotid artery completed [email or web address] [facility] [address], [place], [address], 04/17/2023 10:02:52 12/04/2022 US, duplex, venous, lower extremity completed [facility] [address], [place], [address], 04/17/2023 10:03:13 06/02/2023 bone density completed [address] [place] [address], [address], 06/08/2023 10:32:26 06/02/2023 bone density completed [address], [place], [address], 06/08/2023 10:31:12 07/31/2023 MAMMO, screening, digital, bilateral completed [address], [place], [address], 08/03/2023 16:11:12 07/31/2023 MAMMO, screening, digital, bilateral completed [address] [place] [address], [address], 08/03/2023 16:11:19 09/01/2023 XR, knee, 3 view completed [email or web address] [facility] [address], [place], [address], 09/01/2023 11:13:35 Procedure Notes None recorded. Medical Equipment None Reported. Allergies Allergen ID Allergen Name Allergen Category Reaction Reaction Severity Criticality Documentation Date Start Date Code Code System Note Provider Name and Address Organization Details Recorded Time 6807 procaine hydrochlo ride medicatio n other Not available Not available 09/03/2022 55671 8 RxNorm unkno wn Not Available [facility]ending [facility] to [facility] 3 04:49:46 6809 morphine medicatio n hives Not available Not available 09/03/2022 7052 RxNorm Not Available [facility]ending [facility] to [facility] 3 04:49:46 6810 codeine medicatio n other Not available Not available 09/03/2022 2670 RxNorm unkno wn Not Available [facility]ending sale to [facility] 3 04:49:46 6811 Augmentin medicatio n rash Not available Not available 09/03/20222019 56840 2 RxNorm Not Available Pending sale to [facility] 3 04:49:46 Medications Name Sig Start Date Stop Date Status Note LastModified by Organization Details LastModified Time amoxicill in 500 mg capsule Take 1 capsule 3 times a day by oral route for 7 days. active Not Available Not Available No t Available hydrocodo ne 7.5 mg-ibupro fen 200 mg tablet TAKE 1 TABLET BY MOUTH EVERY 6 HOURS NEEDED FOR PAIN 03/31 completed Not Available Not Available Not Available doxycycli ne hyclate 100 mg capsule Take 1 capsule twice a day by oral route for 7 days. active Not Available Not Available No t Available atorvasta tin 20 mg tablet TAKE 1 TABLET BY MOUTH ONCE DAILY active Not Available Not Available No t Available azithromy dee dee 250 mg tablet TAKE 2 TABLETS (500 MG) BY ORAL ROUTE ONCE DAILY FOR 1 DAY THEN 1 TABLET (250 MG) BY ORAL ROUTE ONCE DAILY FOR 4 DAYS 08/29 completed Not Available Not Available Not Available benzonata te 200 mg capsule Take 1 capsule 3 times a day by oral route for 10 days. 07/23 completed Not Available Not Available Not Available hydrocodo ne 5 mg-acetam inophen 325 mg tablet TK 1 T PO Q 6 H active Not Available Not Available No t Available meloxicam 15 mg tablet TAKE 1 TABLET BY MOUTH ONCE DAILY active Not Available Not Available No t Available Elidel 1 % topical cream APPLY TOICALLY TO RASH AREAS ON FACE TWICE DAILY active Not Available Not Available No t Available ondansetr on HCl 4 mg tablet TK 1 T PO Q 6 H active Not Available Not Available No t Available prednison e 20 mg tablet TAKE 2 TABLETS BY MOUTH ONCE DAILY FOR ONE WEEK active Not Available Not Available No t Available amlodipin e 2.5 mg tablet TAKE 1 TABLET BY MOUTH ONCE DAILY IN THE EVENING active Not Available Not Available No t Available ciproflox acin 250 mg tablet TAKE 1 TABLET BY MOUTH EVERY 12 HOURS FOR 7 DAYS 11/07 completed Not Available Not Available Not Available ofloxacin 0.3 % ear drops 08/02 completed Not Available Not Available Not Available baclofen 10 mg tablet Take 1 tablet(s ) twice a day by oral route as needed 03/26 completed Not Available Not Available Not Available fluoromet holone 0.1 % eye drops,arnold pension INSTILL 1 DROP INTO EACH EYE ONCE DAILY active Not Available Not Available No t Available diclofena c sodium 75 mg tablet,de layed release Take by oral route for 30 days. active Not Available Not Available No t Available methylpre dnisolone 4 mg tablets in a dose pack TAKE BY MOUTH DIRECTED ON INSIDE OF PACKAGE 06/10 completed Not Available Not Available Not Available albuterol sulfate HFA 90 mcg/actua tion aerosol inhaler Inhale 2 puffs every 4 hours by inhalati on route as needed SOB/whee zing 11/07 completed Not Available Not Available Not Available Vitamin D2 1,250 mcg (50,000 unit) capsule TAKE 1 CAPSULE BY MOUTH EVERY TWO WEEKS active Not Available Not Available No t Available fluticaso ne propionat e 50 mcg/actua tion nasal spray,[employer] [place] 2 sprays every day by intranas al route at dinner. active Not Available Not Available No t Available doxycycli ne hyclate 100 mg tablet Take 1 tablet twice a day by oral route. active Not Available Not Available No t Available amoxicill in 875 mg-[place] ium clavulana te 125 mg tablet Take 1 tablet twice a day by oral route for 10 days. 09/15 completed Not Available Not Available Not Available neomycin 3.5 mg/g-poly myxin B 10,000 unit/g-de xameth 0.1 % eye oint APPLY A SMALL AMOUNT TO THE LEFT EYE EVERY NIGHT AT BEDTIME BEGIN AFTER SURGERY DIRECTED 07/29 completed Not Available Not Available Not Available clindamyc in 1 % lotion APPLY LOTION TOPICALL Y TO AFFECTED AREAS ON FACE TWICE DAILY active Not Available Not Available No t Available risedrona te 35 mg tablet Take 1 tablet every week by oral route. 10/11 completed pt stopped Not Available Not Available Not Available Vitamin D3 25 mcg (1,000 unit) capsule Take 1 capsule every day by oral route. 11/20 completed Not Available Not Available Not Available ketorolac 0.4 % eye drops 01/29 completed Not Available Not Available Not Available nitrofura ntoin monohydra te/macroc rystals 100 mg capsule Take 1 capsule every 12 hours by oral route for 5 days. 08/29 completed Not Available Not Available Not Available Vitamin D3 Once daily 2020 [id number]|2024-11-18 07:54:00|2024-11-18 07:52:00|XMS_ITS|BRO JUAREZ|External Medical Summaries|[id number]|" Continuity of Care Document (C-CDA R2.1) (Encounter date: 06/19/2009 02:00 PM) Created on: November 18, 2024 Marychuy Martinez : 1950 Sex: Female Author Organization [facility] Address [address] [place] [address] [place] [address] Phone Care Team Providers Care Chief Load Dispatcher Name Role Phone Jian Maria Unavailable Unavailable Procedures Procedure Date Eye Exam & Treatment Refraction Advance Directives Directive Yes / No Effective Date File Name No Information Encounters Encounter Description Practice Location Reason(s) For Visit Diagnoses Date Provider Providers Copied on Encounter [facility], [address], [place], [place], [id number], [place] tel:[phone] [facility] No Information [address] [facility] [address], [place], [address], [place]. tel:[phone] Family History Family Member Type Diagnosis Age At Onset No Information Payers Payer name Insurance type Covered constitution party ID Authoriza tion(s) No Information Social History Type Description Quantity Date Captured Comments Sex Female Smoking Status No Information Chief Complaint And Reason For Visit No Information Reason For Referral Reason For Referral No Information History Of Present Illness Encounter Date Complaint History Of Prese nt Illness No Information Functional Status Date Functional Assessmen t No Information Instructions Date Instruction Additional Infor mation No Information Assessments Type Assessment Date No Information Patient Care Teams Name Effective Dates (start - stop) Status Members No Information "
--- OUTSIDE RECORDS SUMMARY | 2024-11-18 07:54 | XMS_ITS | Data Portability ---
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 [phone] Assessment Encounter Date Assessment Date Assessment LastModified by Organization Details LastModified Time 04/26/2024 04/26/2024 Healthy lifestyle care instructions MRI of the lumbar spine because of the chronicity in his pain she will follow up with me in 4-5 months we will continue with her amlodipine atorvastatin and Prolia all questions answered [email or web address] Not available 05/08/2024 12:51:47 09/28/2024 09/28/2024 we will continue current therapy blood work has been ordered she has had a little bit of anxiety we have discussed some conservative measures to help treat that it was generalized because of all the stress that is in the political system in the country right now a CBC comprehensive metabolic profile lipid continue with current therapy regular exercise to include some resistance training was discussed follow up with me in 4 months [email or web address] Not available 09/28/2024 10:28:44 Plan of Treatment Reminders Order Date Submit Date Provider Last Modified By Organization Details Last Modified Time Details Appointments ANY 15 2024 09:30A M Melodie Burns MD Not available Not available Not available Lab lipid panel, serum 2024 025 [place] [facility], [address], [place], [address], 09/29/2024 06:25:28 CMP, serum or plasma 2024 025 [place] [facility], [address], [place], [address], 09/29/2024 06:25:29 CBC w/ auto diff 2024 025 [place] [facility], [address], [place], [address], 09/29/2024 06:25:30 Referral None recorde d. Procedures None recorde d. Surgeries None recorde d. Imaging MRI, lumbar spine, w/o contras t 2023 024 tari [facility], [address], [place], [address], 05/18/2024 12:19:02 Medication Orders Prolia 60 mg/mL subcuta neous syringe [address] [facility] [address] [facility], [address] [place] [address], [id number], 10/11/2024 15:41:46 Prolia 60 mg/mL subcuta neous syringe [address] [facility], [address] [place] [address], [id number], 04/12/2024 12:36:35 Prolia 60 mg/mL subcuta neous syringe 2023 024 [email or web address] Not available 10/30/2023 09:29:43 Patient TargetsNo targets recorded. Patient Instructions Encounter Date Encounter Id Patient Instructions Last Modified By Organization Details Last Modified Time 04/26/2024 [id number] A healthy lifestyle: care instructions [email or web address] Not available 04/26/2024 13:01:35 09/28/2024 [id number] A healthy lifestyle: care instructions [email or web address] Not available 09/28/2024 11:24:00 Reason for Referral None Reported. Results Created Date Observation Date Name Description Value Unit Range Abnormal Flag Note LastModifiedBy Organization Detail LastModifiedTime 10/20/19 24 10/21/2023 LIPID PANEL cholesterol, total 210 mg/dL 100-19 9 above high normal Not Available [facility] ([facility]) [address] [facility] [place], [address], 10/21/2023 06:19:40 10/20/19 24 10/21/2023 LIPID PANEL triglyceride s 102 mg/dL 0-149 Not Available [facility]) [address] [facility] [place], [address], 10/21/2023 06:19:40 10/20/19 24 10/21/2023 LIPID PANEL HDL cholesterol 80 mg/dL >39 Not Available [facility] [address] [facility] [place], [address], 10/21/2023 06:19:40 10/20/19 24 10/21/2023 LIPID PANEL VLDL cholesterol juancarlos 18 mg/dL 5-40 Not Available [facility]) [address] [facility] [place], [address], 10/21/2023 06:19:40 10/20/19 24 10/21/2023 LIPID PANEL LDL chol calc ([facility]) 112 mg/dL 0-99 above high normal Not Available [facility] ([facility]) [address] [facility] [place], [address], 10/21/2023 06:19:40 10/20/19 24 10/21/2023 COMP. METAB OLIC PANEL (14) glucose 95 mg/dL 70-99 Not Available [facility] ([facility]) [address] [place], [address], 10/21/2023 06:19:40 10/20/19 24 10/21/2023 COMP. METAB OLIC PANEL (14) BUN 20 mg/dL 8-27 Not Available [facility] ([facility]) [address] [place], [address], 10/21/2023 06:19:40 10/20/19 24 10/21/2023 COMP. METAB OLIC PANEL (14) creatinine 0.77 mg/dL 0.57-1 .00 Not Available [facility] ([facility]) [address] [facility], [place], [address], 10/21/2023 06:19:40 10/20/19 24 10/21/2023 COMP. METAB OLIC PANEL (14) eGFR 80 mL/mi n/1.7 3 >59 Not Available [facility] ([facility]) [address] [facility], [place], [address], 10/21/2023 06:19:40 10/20/19 24 10/21/2023 COMP. METAB OLIC PANEL (14) BUN/creatini ne ratio 26 12-28 Not Available [facility] ([facility]) [address] [facility], [place], [address], 10/21/2023 06:19:40 10/20/19 24 10/21/2023 COMP. METAB OLIC PANEL (14) sodium 141 mmol/ L 134-14 4 Not Available [facility] ([facility]) [address] [place], [address], 10/21/2023 06:19:40 10/20/19 24 10/21/2023 COMP. METAB OLIC PANEL (14) potassium 4.9 mmol/ L 3.5-5. 2 Not Available [facility] ([facility]) [address] [place], [address], 10/21/2023 06:19:40 10/20/19 24 10/21/2023 COMP. METAB OLIC PANEL (14) chloride 103 mmol/ L 96-106 Not Available [facility] ([facility]) [address] [place], [address], 10/21/2023 06:19:40 10/20/19 24 10/21/2023 COMP. METAB OLIC PANEL (14) carbon dioxide, total 25 mmol/ L 20-29 Not Available [facility] ([facility]) [address] [place], [address], 10/21/2023 06:19:40 10/20/19 24 10/21/2023 COMP. METAB OLIC PANEL (14) calcium 9.6 mg/dL 8.7-10 .3 Not Available [facility] ([facility]) [address] [facility], [place], [address], 10/21/2023 06:19:40 10/20/19 24 10/21/2023 COMP. METAB OLIC PANEL (14) protein, total 7.1 g/dL 6.0-8. 5 Not Available [facility] ([facility]) [address] [place], [address], 10/21/2023 06:19:40 10/20/19 24 10/21/2023 COMP. METAB OLIC PANEL (14) albumin 4.5 g/dL 3.8-4. 8 Not Available [facility] ([facility]) [address] [place], [address], 10/21/2023 06:19:40 10/20/19 24 10/21/2023 COMP. METAB OLIC PANEL (14) globulin, total 2.6 g/dL 1.5-4. 5 Not Available [facility] ([facility]) [address] [place], [address], 10/21/2023 06:19:40 10/20/19 24 10/21/2023 COMP. METAB OLIC PANEL (14) A/G ratio 1.7 1.2-2. 2 Not Available [facility] ([facility]) [address] [place], [address], 10/21/2023 06:19:40 10/20/19 24 10/21/2023 COMP. METAB OLIC PANEL (14) bilirubin, total 0.8 mg/dL 0.0-1. 2 Not Available [facility] ([facility]) [address] [place], [address], 10/21/2023 06:19:40 10/20/19 24 10/21/2023 COMP. METAB OLIC PANEL (14) alkaline phosphatase 141 IU/L 44-121 above high normal Not Available [facility] ([facility]) [address] [place], [address], 10/21/2023 06:19:40 10/20/19 24 10/21/2023 COMP. METAB OLIC PANEL (14) AST (SGOT) 25 IU/L 0-40 Not Available [facility] ([facility]) [address] [place], [address], 10/21/2023 06:19:40 10/20/19 24 10/21/2023 COMP. METAB OLIC PANEL (14) ALT (SGPT) 20 IU/L 0-32 Not Available [facility] ([facility]) [address] [place], [address], 10/21/2023 06:19:40 10/20/19 24 10/20/2023 CBC WITH DIFFE RENTI AL/PL ATELE T WBC 6.3 x10e3 /uL 3.4-10 .8 Not Available [facility] ([facility]) [address] [place], [address], 10/21/2023 06:19:41 10/20/19 24 10/20/2023 CBC WITH DIFFE RENTI AL/PL ATELE T RBC 5.00 x10e6 /uL 3.77-5 .28 Not Available [facility] ([facility]) [address] [place], [address], 10/21/2023 06:19:41 10/20/19 24 10/20/2023 CBC WITH DIFFE RENTI AL/PL ATELE T hemoglobin 15.3 g/dL 11.1-1 5.9 Not Available [facility] ([facility]) [address] [facility], [place], [address], 10/21/2023 06:19:41 10/20/19 24 10/20/2023 CBC WITH DIFFE RENTI AL/PL ATELE T hematocrit 45.7 % 34.0-4 6.6 Not Available [facility] ([facility]) [address] [facility], [place], [address], 10/21/2023 06:19:41 10/20/19 24 10/20/2023 CBC WITH DIFFE RENTI AL/PL ATELE T MCV 91 fL 79-97 Not Available [facility] ([facility]) [address] [facility], [place], [address], 10/21/2023 06:19:41 10/20/19 24 10/20/2023 CBC WITH DIFFE RENTI AL/PL ATELE T MCH 30.6 pg 26.6-3 3.0 Not Available [facility] ([facility]) [address] [facility], [place], [address], 10/21/2023 06:19:41 10/20/19 24 10/20/2023 CBC WITH DIFFE RENTI AL/PL ATELE T MCHC 33.5 g/dL 31.5-3 5.7 Not Available [facility] ([facility]) [address] [facility], [place], [address], 10/21/2023 06:19:41 10/20/19 24 10/20/2023 CBC WITH DIFFE RENTI AL/PL ATELE T RDW 13.1 % 11.7-1 5.4 Not Available [facility] ([facility]) [address] [place], [address], 10/21/2023 06:19:41 10/20/19 24 10/20/2023 CBC WITH DIFFE RENTI AL/PL ATELE T platelets 180 x10e3 /uL 150-45 0 Not Available [facility] ([facility]) [address], [place], [address], 10/21/2023 06:19:41 10/20/19 24 10/20/2023 CBC WITH DIFFE RENTI AL/PL ATELE T neutrophils 58 % notest ab. Not Available [facility] ([facility]) [address], [place], [address], 10/21/2023 06:19:41 10/20/19 24 10/20/2023 CBC WITH DIFFE RENTI AL/PL ATELE T lymphs 29 % notest ab. Not Available [facility] ([facility]) [address] [facility], [place], [address], 10/21/2023 06:19:41 10/20/19 24 10/20/2023 CBC WITH DIFFE RENTI AL/PL ATELE T monocytes 9 % notest ab. Not Available [facility] ([facility]) [address] [facility], [place], [address], 10/21/2023 06:19:41 10/20/19 24 10/20/2023 CBC WITH DIFFE RENTI AL/PL ATELE T eos 3 % notest ab. Not Available [facility] ([facility]) [address] [facility], [place], [address], 10/21/2023 06:19:41 10/20/19 24 10/20/2023 CBC WITH DIFFE RENTI AL/PL ATELE T basos 1 % notest ab. Not Available [facility] ([facility]) [address] [facility], [place], [address], 10/21/2023 06:19:41 10/20/19 24 10/20/2023 CBC WITH DIFFE RENTI AL/PL ATELE T neutrophils (absolute) 3.7 x10e3 /uL 1.4-7. 0 Not Available [facility] ([facility]) [address] [facility], [place], [address], 10/21/2023 06:19:41 10/20/19 24 10/20/2023 CBC WITH DIFFE RENTI AL/PL ATELE T lymphs (absolute) 1.8 x10e3 /uL 0.7-3. 1 Not Available [facility] ([facility]) [address] [facility], [place], [address], 10/21/2023 06:19:41 10/20/19 24 10/20/2023 CBC WITH DIFFE RENTI AL/PL ATELE T monocytes(ab solute) 0.6 x10e3 /uL 0.1-0. 9 Not Available [facility] ([facility]) [address] [facility], [place], [address], 10/21/2023 06:19:41 10/20/19 24 10/20/2023 CBC WITH DIFFE RENTI AL/PL ATELE T eos (absolute) 0.2 x10e3 /uL 0.0-0. 4 Not Available [facility] ([facility]) [address] [facility], [place], [address], 10/21/2023 06:19:41 10/20/19 24 10/20/2023 CBC WITH DIFFE RENTI AL/PL ATELE T baso (absolute) 0.1 x10e3 /uL 0.0-0. 2 Not Available [facility] ([facility]) [address] [facility], [place], [address], 10/21/2023 06:19:41 10/20/19 24 10/20/2023 CBC WITH DIFFE RENTI AL/PL ATELE T immature granulocytes 0 % notest ab. Not Available [facility] ([facility]) [address] [place], [address], 10/21/2023 06:19:41 10/20/19 24 10/20/2023 CBC WITH DIFFE RENTI AL/PL ATELE T immature grans (abs) 0.0 x10e3 /uL 0.0-0. 1 Not Available [facility] ([facility]) [address] [facility], [place], [address], 10/21/2023 06:19:41 10/20/19 24 10/21/2023 VITAM IN D, 25-HY DROXY vitamin D, 25-hydroxy 61.9 NG/mL 30.0-1 00.0 Vitam in D defic iency has been defin ed by the Insti tute of Medic ine and an Endoc rine Socie ty pract ice guide line as a level of serum 25-OH vitam in D less than 20 ng/mL (1,2) . The Endoc rine Socie ty went on to furth er defin e vitam in D insuf ficie ncy as a level betwe en 21 and 29 ng/mL (2). 1. IOM (Inst itute of Medic ine). 2010. Dieta ry refer ence alisa es for calci um and D. Janice douglas [place]: The [facility] Acade [facility] Press . 2. Eileen gupta [place], Jose barrientos [place], Bernardo off-F jesse i SHEPPARD, et al. Evalu ation , treat ment, and preve ntion of vitam in D defic iency : an Endoc rine Socie ty clini juancarlos pract ice guide line. JCEM. 2010; 96(7) :1911 -30. Not Available [facility] ([facility]) [address] [facility], [place], [address], 10/21/2023 06:19:42 09/29/1909/29/2024 LIPID PANEL cholesterol, total 187 mg/dL 100-19 9 Not Available [facility] ([facility]) [address] [facility], [place], [address], 09/29/2024 06:25:28 09/29/1909/29/2024 LIPID PANEL triglyceride s 95 mg/dL 0-149 Not Available [facility] ([facility]) [address] [facility], [place], [address], 09/29/2024 06:25:28 09/29/19 25 09/29/2024 LIPID PANEL HDL cholesterol 67 mg/dL >39 Not Available [facility] ([facility]) [address] [place], [address], 09/29/2024 06:25:28 09/29/19 25 09/29/2024 LIPID PANEL VLDL cholesterol juancarlos 17 mg/dL 5-40 Not Available [facility] ([facility]) [address] [place], [address], 09/29/2024 06:25:28 09/29/19 25 09/29/2024 LIPID PANEL LDL chol calc ([facility]) 103 mg/dL 0-99 above high normal Not Available [facility] ([facility]) [address] [place], [address], 09/29/2024 06:25:28 09/29/19 25 09/29/2024 COMP. METAB OLIC PANEL (14) glucose 101 mg/dL 70-99 above high normal Not Available [facility] ([facility]) [address] [place], [address], 09/29/2024 06:25:29 09/29/19 25 09/29/2024 COMP. METAB OLIC PANEL (14) BUN 20 mg/dL 8-27 Not Available [facility] ([facility]) [address] [place], [address], 09/29/2024 06:25:29 09/29/19 25 09/29/2024 COMP. METAB OLIC PANEL (14) creatinine 0.88 mg/dL 0.57-1 .00 Not Available [facility] ([facility]) [address] [place], [address], 09/29/2024 06:25:29 09/29/19 25 09/29/2024 COMP. METAB OLIC PANEL (14) eGFR 68 mL/mi n/1.7 3 >59 Not Available [facility] ([facility]) [address] [facility], [place], [address], 09/29/2024 06:25:29 09/29/19 25 09/29/2024 COMP. METAB OLIC PANEL (14) BUN/creatini ne ratio 23 12-28 Not Available [facility] ([facility]) [address] [facility], [place], [address], 09/29/2024 06:25:29 09/29/19 25 09/29/2024 COMP. METAB OLIC PANEL (14) sodium 140 mmol/ L 134-14 4 Not Available [facility] ([facility]) [address] [facility], [place], [address], 09/29/2024 06:25:29 09/29/19 25 09/29/2024 COMP. METAB OLIC PANEL (14) potassium 4.8 mmol/ L 3.5-5. 2 Not Available [facility] ([facility]) [address] [facility], [place], [address], 09/29/2024 06:25:29 09/29/19 25 09/29/2024 COMP. METAB OLIC PANEL (14) chloride 101 mmol/ L 96-106 Not Available [facility] ([facility]) [address] [facility], [place], [address], 09/29/2024 06:25:29 09/29/19 25 09/29/2024 COMP. METAB OLIC PANEL (14) carbon dioxide, total 24 mmol/ L 20-29 Not Available [facility] ([facility]) [address] [facility], [place], [address], 09/29/2024 06:25:29 09/29/19 25 09/29/2024 COMP. METAB OLIC PANEL (14) calcium 9.8 mg/dL 8.7-10 .3 Not Available [facility] ([facility]) [address] [facility], [place], [address], 09/29/2024 06:25:29 03/26/20 25 09/29/2024 COMP. METAB OLIC PANEL (14) protein, total 7.3 g/dL 6.0-8. 5 Not Available [facility] ([facility]) [address] [place], [address], 09/29/2024 06:25:29 09/29/19 25 09/29/2024 COMP. METAB OLIC PANEL (14) albumin 4.5 g/dL 3.8-4. 8 Not Available [facility] ([facility]) [address] [place], [address], 09/29/2024 06:25:29 09/29/19 25 09/29/2024 COMP. METAB OLIC PANEL (14) globulin, total 2.8 g/dL 1.5-4. 5 Not Available [facility] ([facility]) [address] [place], [address], 09/29/2024 06:25:29 09/29/19 25 09/29/2024 COMP. METAB OLIC PANEL (14) bilirubin, total 0.8 mg/dL 0.0-1. 2 Not Available [facility] ([facility]) [address] [place], [address], 09/29/2024 06:25:29 09/29/19 25 09/29/2024 COMP. METAB OLIC PANEL (14) alkaline phosphatase 109 IU/L 44-121 Not Available [facility]) [address] [place], [address], 09/29/2024 06:25:29 09/29/19 25 09/29/2024 COMP. METAB OLIC PANEL (14) AST (SGOT) 26 IU/L 0-40 Not Available [facility] ([facility]) [address] [place], [address], 09/29/2024 06:25:29 09/29/19 25 09/29/2024 COMP. METAB OLIC PANEL (14) ALT (SGPT) 18 IU/L 0-32 Not Available [facility] ([facility]) [address] [facility], [place], [address], 09/29/2024 06:25:29 09/29/1909/29/2024 CBC WITH DIFFE RENTI AL/PL ATELE T WBC 7.8 x10e3 /uL 3.4-10 .8 Not Available [facility] ([facility]) [address] [facility], [place], [address], 09/29/2024 06:25:30 09/29/1909/29/2024 CBC WITH DIFFE RENTI AL/PL ATELE T RBC 5.12 x10e6 /uL 3.77-5 .28 Not Available [facility] ([facility]) [address] [place], [address], 09/29/2024 06:25:30 09/29/1909/29/2024 CBC WITH DIFFE RENTI AL/PL ATELE T hemoglobin 15.6 g/dL 11.1-1 5.9 Not Available [facility] ([facility]) [address] [place], [address], 09/29/2024 06:25:30 09/29/1909/29/2024 CBC WITH DIFFE RENTI AL/PL ATELE T hematocrit 46.9 % 34.0-4 6.6 above high normal Not Available [facility] ([facility]) [address] [place], [address], 09/29/2024 06:25:30 09/29/1909/29/2024 CBC WITH DIFFE RENTI AL/PL ATELE T MCV 92 fL 79-97 Not Available [facility] ([facility]) [address] [place], [address], 09/29/2024 06:25:30 09/29/1909/29/2024 CBC WITH DIFFE RENTI AL/PL ATELE T MCH 30.5 pg 26.6-3 3.0 Not Available [facility] ([facility]) [address] [facility], [place], [address], 09/29/2024 06:25:30 09/29/19 25 09/29/2024 CBC WITH DIFFE RENTI AL/PL ATELE T MCHC 33.3 g/dL 31.5-3 5.7 Not Available [facility] ([facility]) [address] [facility], [place], [address], 09/29/2024 06:25:30 09/29/19 25 09/29/2024 CBC WITH DIFFE RENTI AL/PL ATELE T RDW 13.0 % 11.7-1 5.4 Not Available [facility] ([facility]) [address] [facility], [place], [address], 09/29/2024 06:25:30 09/29/19 25 09/29/2024 CBC WITH DIFFE RENTI AL/PL ATELE T platelets 190 x10e3 /uL 150-45 0 Not Available [facility] ([facility]) [address] [facility], [place], [address], 09/29/2024 06:25:30 09/29/19 25 09/29/2024 CBC WITH DIFFE RENTI AL/PL ATELE T neutrophils 65 % notest ab. Not Available [facility] ([facility]) [address] [facility], [place], [address], 09/29/2024 06:25:30 09/29/19 25 09/29/2024 CBC WITH DIFFE RENTI AL/PL ATELE T lymphs 23 % notest ab. Not Available [facility] ([facility]) [address] [place], [address], 09/29/2024 06:25:30 09/29/19 25 09/29/2024 CBC WITH DIFFE RENTI AL/PL ATELE T monocytes 8 % notest ab. Not Available [facility] ([facility]) [address] [facility], [place], [address], 09/29/2024 06:25:30 09/29/19 25 09/29/2024 CBC WITH DIFFE RENTI AL/PL ATELE T eos 3 % notest ab. Not Available [facility] ([facility]) [address] [facility], [place], [address], 09/29/2024 06:25:30 09/29/19 25 09/29/2024 CBC WITH DIFFE RENTI AL/PL ATELE T basos 1 % notest ab. Not Available [facility] ([facility]) [address] [facility], [place], [address], 09/29/2024 06:25:30 09/29/19 25 09/29/2024 CBC WITH DIFFE RENTI AL/PL ATELE T neutrophils (absolute) 5.1 x10e3 /uL 1.4-7. 0 Not Available [facility] ([facility]) [address] [facility], [place], [address], 09/29/2024 06:25:30 09/29/19 25 09/29/2024 CBC WITH DIFFE RENTI AL/PL ATELE T lymphs (absolute) 1.8 x10e3 /uL 0.7-3. 1 Not Available [facility] ([facility]) [address] [place], [address], 09/29/2024 06:25:30 09/29/19 25 09/29/2024 CBC WITH DIFFE RENTI AL/PL ATELE T monocytes(ab solute) 0.6 x10e3 /uL 0.1-0. 9 Not Available [facility] ([facility]) [address] [facility], [place], [address], 09/29/2024 06:25:30 09/29/19 25 09/29/2024 CBC WITH DIFFE RENTI AL/PL ATELE T eos (absolute) 0.2 x10e3 /uL 0.0-0. 4 Not Available [facility] ([facility]) [address] [facility], [place], [address], 09/29/2024 06:25:30 09/29/19 25 09/29/2024 CBC WITH DIFFE RENTI AL/PL ATELE T baso (absolute) 0.1 x10e3 /uL 0.0-0. 2 Not Available [facility] ([facility]) [address] [facility], [place], [address], 09/29/2024 06:25:30 09/29/19 25 09/29/2024 CBC WITH DIFFE RENTI AL/PL ATELE T immature granulocytes 0 % notest ab. Not Available [facility] ([facility]) [address] [facility], [place], [address], 09/29/2024 06:25:30 09/29/19 25 09/29/2024 CBC WITH DIFFE RENTI AL/PL ATELE T immature grans (abs) 0.0 x10e3 /uL 0.0-0. 1 Not Available [facility] ([facility]) [address] [facility], [place], [address], 09/29/2024 06:25:30 10/20/19 24 06/02/2023 DEXA, axial skele ton No observ ation record ed. [facility] Not Available 2023 11:43:00 10/20/19 24 10/23/2014 colon oscop y cayla buck (PROC ) No observ ation record ed. [facility] Not Available 2023 11:45:44 10/21/19 24 07/31/2023 MAMMO cayla bilat eral No observ ation record ed. [facility] [address], [place], [address], 10/26/2023 17:56:30 05/12/20 24 05/12/2024 MRI, lumba r spine , w/o contr ast No observ ation record ed. [facility] [address], [place], [address], 05/18/2024 12:19:23 Result Notes None recorded. Problems Name Problem SNOMED Code Status Onset Date Resolution Date Notes Provider Name and Address Organization Details Recorded Time Essential hypertension 37358549 Active 2023 Melodie Burns MD Attn: Boni nunes,[address] [facility], [place], [address], [facility] - [facility] 4 10:41:06 Hyperlipidemia 54577991 Active 2023 Melodie Burns MD Attn: Boni nunes,[address] [facility], [place], [address], [facility] - [facility]IF 4 10:41:07 Osteoporosis 85100567 Active 2023 Melodie Burns MD Attn: Boni nunes,[address] [facility], [place], [address], [facility] - [facility] 4 10:41:08 Problem Notes None recorded. Procedures Surgical History Date Name Laterality Status Provider Name and Address Organization Details Recorded Time Eye Surgery completed Heidi Bonilla MA [place] - [facility] 10/20/2023 10:16:07 partial hysterectomy completed John Belcher MA [place] - [facility] 09/28/2024 09:12:56 Imaging Results Imaging Date Name Status LastModified by Organiz ation Details LastModified Time 06/02/2023 DEXA, axial skeleton completed [facility] Information not available 10/20/2023 11:43:00 10/23/2014 colonoscopy screening (PROC) completed [facility] Information not available 10/20/2023 11:45:44 07/31/2023 MAMMO, screening, bilateral completed [facility] [address], [place], [address], 10/26/2023 17:56:30 05/12/2024 MRI, lumbar spine, w/o contrast completed [facility] [address], [place], [address], 05/18/2024 12:19:23 Procedure Notes None recorded. Medical Equipment None Reported. Allergies Allergen ID Allergen Name Allergen Category Reaction Reaction Severity Criticality Documentation Date Start Date Code Code System Note Provider Name and Address Organization Details Recorded Time [id number] amoxicill in medicatio n rash Not available Not available 10/20/2023 [address] [facility] [place], [place] - [facility] 4 10:12:35 [id number] morphine medicatio n rash Not available Not available 10/20/2023 [address] [facility] [place], [place] [facility] 4 10:13:03 Medications Name Sig Start Date Stop Date Status Note LastModified by Organization Details LastModified Time atorvastati n 20 mg tablet Take 1 tablet by mouth once daily active Not Available Not Available No t Available azithromyci n 250 mg tablet TAKE 2 TABLETS BY MOUTH ON DAY 1, AND THEN TAKE 1 TABLET BY MOUTH ONCE A DAY ON DAY 2 THROUGH DAY 5 09/28 completed Not Available Not Available Not Available amlodipine 2.5 mg tablet TAKE 1 TABLET BY MOUTH ONCE DAILY IN THE EVENING active Not Available Not Available No t Available fluorometho lone 0.1 % eye drops,suspe nsion INSTILL 1 DROP INTO EACH EYE ONCE DAILY active Not Available Not Available No t Available methylpredn isolone 4 mg tablets in a dose pack TAKE BY MOUTH DIRECTED ON INSIDE OF PACKAGE 10/19 completed Not Available Not Available Not Available Prolia 60 mg/mL subcutaneou s syringe inject 60mg every 6mths 2024 active Not Available Not Available Not Avai lable Vitals Date Recorded Body height Body mass index (BMI) Body weight Heart rate Oxygen saturation Oxygen saturation in Arterial blood by Pulse oximetry Systolic blood pressure Diastolic blood pressure Provider Name and Address Organization Details Last Updated DateTime 4 157.48 cm 30.6 kg/m2 92975.7 2 g 67 /min 97 % 97 % 118 mm[Hg] 68 mm[Hg] GORGE Reynoso - [facility] 4 10:05:43 Date Recorded Body height Body mass index (BMI) Body weight Heart rate Oxygen saturation Oxygen saturation in Arterial blood by Pulse oximetry Systolic blood pressure Diastolic blood pressure Provider Name and Address Organization Details Last Updated DateTime 5 157.48 cm 31.6 kg/m2 25087.4 8 g 72 /min 97 % 97 % 116 mm[Hg] 78 mm[Hg] John Belcher [place] - [facility] 5 09:15:42 Social History Question Answer Notes [id number]|2024-11-18 07:54:00|2024-11-18 07:54:00|XMS_ITS|BKG DAEMON|External Medical Summaries|[id number]|" Clinical Summary Created on: November 18, 2024 Marychuy Martinez : 1950 Sex: Female Author Organization [facility] Address [address] [place] [address] Care Team Providers Care Accounting Manager Name Role Phone Unavailable Primary Care Provider Unavailabl e Social History Tobacco Use Types Packs/Day Years Used Date Smoking Tobacco: Never Assessed Comments Unknown Sex and Gender Information Value Date Recorded Sex Assigned at Not on file Legal Sex Female 7:01 PM CDT Gender Identity Not on file Sexual Orientation Not on file Plan of Treatment Health Maintenance Due Date Last Done Comments Hepatitis C 1966 DTaP, Tdap and Td Vaccines ( 1 - Tdap) 1967 Pneumococcal Vaccine: 50+ Ye ars (1 of 1 - PCV) 1998 Zoster Vaccines (1 of 2) 1998 Dexa Scan (General) 2013 RSV Immunization or 60+ Years (1 - 1-dose 75+ series) 2023 COVID-19 Vaccine ( - 2023-2 5 season) 2024 Meningococcal B Vaccine Aged Out No l onger eligible based on patient's age to complete this topic Meningococcal Vaccine Aged Out No srinivas irina eligible based on patient's age to complete this topic RSV Immunizations Under 20 Months Aged Out No longer eligible based on patient's age to complete this topic "
== END 2024-11-18 07:50 | disposition home or self-care (01) ==
LOC: ANHIMG 07:51
PROVIDERS: PCP Internal Medicine; Visit Provider Internal Medicine
DX: Z12.31 Encounter for screening mammogram for malignant neoplasm of breast (principal)
CPT/HCPCS: 77063; 77067

== ENCOUNTER 2024-12-20 12:30 | Outpatient (CLI) | payer MEDICARE, MEDICAID, SELFPAY ==
--- NOTE | ~2024-12-20 | MR_ITS ---
MRI of the right foot Clinical history spontaneous rupture flexor tendon TECHNIQUE: Axial proton-density and proton-density fat-sat images, sagittal T1-weighted and STIR imag es, and coronal T1-weighted and proton-density fat-sat images were performed. FINDINGS: Syndesmotic ligaments at the ankle are intact. Anterior and posterior talofibular ligaments , and calcaneofibular ligament are intact. Deltoid ligament is intact. Medial flexor tendons at the ankle are intact. There is focal severe tendinosis of the peroneal tendo ns, without evidence of rupture. Anterior extensor tendons at the ankle are intact. Achilles tendon i ntact. Visualized flexor and extensor tendons extending to the foot are intact. There is high-grade chondromalacia at the central aspect of the distal tibial plafond and with subcho ndral cystic change and marrow edema. No osteochondral lesion of the talar dome seen. There are addit ional scattered minimal degenerative changes in the hindfoot and midfoot articulations. Remaining bon e marrow signals are essentially unremarkable. No significant joint effusion seen. Plantar fascia intact. No soft tissue mass or fluid collection evident. IMPRESSION: Focal severe tendinosis of the peroneal tendons without evidence of tendon rupture. High-grade chondromalacia the central aspect of the distal tibial plafond, with subchondral cystic ch can and marrow edema. Additional mild degenerative changes scattered in the midfoot and hindfoot. Reviewed, dictated and finalized at [facility]. IMPRESSION: Focal severe tendinosis of the peroneal tendons without evidence of tendon rupt ure. High-grade chondromalacia the central aspect of the distal tibial plafond, with subchondral cystic change and marrow edema. Additional mild degenerative cole es scattered in the midfoot and hindfoot.
== END 2024-12-20 12:31 | disposition home or self-care (01) ==
PROVIDERS: PCP Internal Medicine; Visit Provider Podiatrist Foot & Ankle Surgery
DX: M66.371 Spontaneous rupture of flexor tendons, right ankle and foot (principal)
CPT/HCPCS: 73718

== ENCOUNTER 2025-06-12 10:53 | Outpatient (CLI) | payer MEDICARE, MEDICAID, SELFPAY ==
--- NOTE | ~2025-06-12 | DEXA_ITS ---
Bone Density Report Name: FREDY MOTA Age: 74 Sex: Female Ethnicity: White Date of : 1950 Indication: postmenopausal osteoporosis; monitoring treatment; height loss; prior fracture; hysterectomy; secondary osteoporosis; Referring Provider: MELODIE CAVAZOS Study: Bone densitometry was performed. Exam Date: June 12, 2025 Accession number: [id number] Bone Density: Region BMD T-score Z-score Classification AP Spine(L1-L4) 0.815 -2.1 0.4 Osteopenia Femoral Neck (Left) 0.723 -1.1 1.0 Osteopenia Total Hip (Left) 0.777 -1.4 0.5 Osteopenia Femoral Neck (Right) 0.608 -2.2 0.0 Osteopenia Total Hip (Right) 0.786 -1.3 0.6 Osteopenia Total Hip Mean 0.782 -1.4 0.6 Osteopenia World Health Organization criteria for BMD impression classify patients as: Normal (T-score at or above -1.0), Osteopenia (T-score between -1.0 and -2.5), or Osteoporosis (T-score at or below -2.5). 10-year Fracture Risk: FRAX not reported because: Treated for osteoporosis Previous Exams: Region Exam Age BMD T-score BMD Change BMD Change Date g/cm2 vs Baseline vs Previous AP Spine (L1-L4) 06/12/2025 74 0.815 -2.1 0.097 (13.4%)* 0.097 (13.4%)* 06/02/2023 72 0.719 -3.0 Total Hip(Left) 06/12/2025 74 0.777 -1.4 0.012 (1.6%) 0.012 (1.6%) 06/02/2023 72 0.764 -1.5 Total Hip(Right) 06/12/2025 74 0.786 -1.3 0.025 (3.3%) 0.025 (3.3%) 06/02/2023 72 0.761 -1.5 *Denotes significance at 95% confidence level, LSC for AP Spine = 0.022 g/cm2, LSC for Total Hip = 0.027 g/cm2 Clinical Information Provided by Patient: Has had a low trauma fracture Has secondary osteoporosis Is being treated for osteoporosis Has used the following medications: Prolia (i.e. denosumab), Vitamin D, Calcium Has the following medical conditions: Hysterectomy Patient maximum height was 64 Menopause Age: 28 No regular weight bearing exercise Onset of menses at age 10 Number of children 1 Impression: The patient has low bone mass, based on the Right Femoral Neck T-score. The patient has risk factors, including: previous fracture. No significant bone loss was observed. Discussion: PATIENT UNDER TREATMENT WITH NO SIGNIFICANT BMD LOSS SINCE LAST EXAM. In an untreated patient, BMD typically declines with age. A lack of decline or gain is usually a sign that treatment is efficacious and fracture risk is reduced. It is important to ask patients whether they are taking their medications and to encourage continued and appropriate compliance with their osteoporosis therapies to reduce fracture risk. It is also important to review their risk factors and encourage appropriate calcium and vitamin D intakes, exercise, fall prevention and other lifestyle measures. Follow-Up: Consider a repeat BMD and Vertebral Fracture Assessment (VFA) exam in 2 years or sooner if medically necessary, to reassess this patient's status. Reported by: ARTIS on 06/12/2025 11:48:00 AM. Reviewed, dictated and finalized at location A.
== END 2025-06-12 10:54 | disposition home or self-care (01) ==
LOC: ANHFOHIMG 10:55
PROVIDERS: PCP Internal Medicine; Visit Provider Internal Medicine
DX: M81.0 Age-related osteoporosis without current pathological fracture (principal); M85.88 Other specified disorders of bone density and structure, other site; M85.852 Other specified disorders of bone density and structure, left thigh; M85.851 Other specified disorders of bone density and structure, right thigh
CPT/HCPCS: 77080